=== PATIENT | male | born 1980 | race Caucasian/White ===

== ENCOUNTER 2021-12-19 20:27 | Emergency (ER) | payer MEDICARE, MEDICAID, SELFPAY ==
[2021-12-19 20:30] VITALS: BP 131/67; PULSE 80; RESP 20; TEMP 37; O2SAT 97
[2021-12-19 22:03] VITALS: PULSE 70; RESP 16; O2SAT 96
[2021-12-19] MEDS: diphenhydrAMINE HCL 25 MG TABLET 50 MG PO (22:18)
[2021-12-19] MEDS: Famotidine 20 MG TABLET PO (22:18)
[2021-12-19] MEDS: predniSONE 20 MG TABLET 40 MG PO (22:19)
[2021-12-20 00:14] VITALS: BP 102/63; PULSE 78
[2021-12-20] MEDS: EPINEPHrine 1 MG/ML VIAL 0.3 MG IM (00:14)
--- NOTE | 2021-12-20 00:42 | ED_ITS ---
HPI - Allergic Reaction General Chief complaint: Allergic Reaction Stated complaint: Allergic reaction/Hives Time Seen by Provider: 12/19/21 22:10 Source: patient Mode of arrival: ambulatory Limitations: no limitations History of Present Illness HPI narrative: Patient comes with macular rash all over the body started 2 days ago getting worse today no oral lesions rash is all over the body no shortness of breath no throat pain Related Data Previous Rx's Medication Instructions Recorded diphenhydramine HCl 25 mg capsule 50 mg PO Q6-8H PRN itching #40 caps 12/19/21 (Benadryl) famotidine 20 mg tablet (Pepcid AC) 20 mg PO BID #14 tabs 12/20/21 prednisone 20 mg tablet 40 mg PO DAILY #10 tabs 12/20/21 Allergies Allergy/AdvReac Type Severity Reaction Status Date / Time No Known Allergies Allergy Verified 12/19/21 22:10 Review of Systems Review of Systems: Yes all other systems are reviewed and are negative [facility] Social History Social History Patient Tobacco Use Status: Current everyday Tobacco user Use of substances other than those prescribed or required for medical reasons: Yes Substance Use Type: Marijuana Substance Use Frequency: Daily Last Used Substance: Hours (ago) Advance Directives: No Advance Directives Information Provided: No Physical Exam ED Vital Signs: Vital Signs - 24 hr 12/19/21 20:30 12/19/21 22:03 12/20/21 00:14 Temperature 98.6 F Pulse Rate 80 70 78 Respiratory Rate 20 16 Blood Pressure 131/67 102/63 Pulse Oximetry 97 96 Oxygen Delivery Method Room Air Room Air BMI result Body Mass Index 20.0 Appearance: Alert. Oriented X3. No acute distress. ENT: Pharynx normal. Oral Mucosa moist Neck: Normal inspection. Neck supple. CVS: Normal heart rate and rhythm. Pulses normal. Respiratory: No respiratory distress. Equal air entry bilateral, no wheezing/rales/rhonchi Abdomen: Soft and nontender. Bowel sounds are present, no mass palpable, no CVA tenderness Skin: Skin warm and dry. Normal skin color. Normal skin turgor. Macular rash all over the body trunk extremities and face lips and tongue normal Extremities: No lower extremity edema. No calf tenderness Neuro: Oriented X 3. MDM - Allergic Reaction MDM Narrative Medical decision making narrative: Patient with allergic reaction to unknown agent improved after Benadryl prednisone and epi, will discharge patient home Discharge Plan Discharge Clinical Impression: Allergic reaction Patient Disposition: Home, Self-Care Instructions: General Allergic Reaction (ED) Additional Instructions: Take medicine as prescribed Etiology of your allergic reactions is not very clear Follow with PCP for further evaluation if not better Prescriptions: New diphenhydramine HCl [Benadryl] 25 mg capsule 50 mg PO Q6-8H PRN (Reason: itching) Qty: 40 0RF prednisone 20 mg tablet 40 mg PO DAILY Qty: 10 0RF famotidine [Pepcid AC] 20 mg tablet 20 mg PO BID Qty: 14 0RF Interventions: ED Discharge Assessment Last Done: 12/20/21 00:39
== END 2021-12-20 00:44 | disposition home or self-care (01) ==
PROVIDERS: Emergency Provider Internal Medicine
DX: L50.0 Allergic urticaria (principal); Z79.899 Other long term (current) drug therapy
CPT/HCPCS: 96372; 99283; 99284; J0171; Q0163